=== PATIENT | male | born 1995 | race Caucasian/White ===

== ENCOUNTER 2017-06-07 16:47 | Inpatient (IN) | payer SELFPAY ==
[~2017-06-07] VITALS: Ht 182.9 cm; Wt 78.9 kg
[2017-06-07 00:23] VITALS: BP 104/60
[2017-06-07 17:34] VITALS: BP 122/61
[2017-06-07] MEDS ORDERED: NACL 0.9% 500 ML IV ONE (19:37)
[2017-06-07] MEDS ORDERED: ONDANSETRON 4 MG/2 ML VIAL IVP ONE (19:40)
[2017-06-07] MEDS ORDERED: KETOROLAC 30 MG/ML VIAL IVP ONE (19:40)
[2017-06-07] MEDS ORDERED: NACL 0.9% 1,000 ML IV ONE (19:40)
[2017-06-07 20:16] LABS: BASOPHILS # (AUTO) 0.2 K/uL (0.00-0.22); BASOPHILS % (AUTO) 1.4 % (0.0-2.0); EOSINOPHILS # (AUTO) 0.2 K/uL (0-0.4); EOSINOPHILS % (AUTO) 1.9 % (0.0-4.0); HEMATOCRIT 50.4 % (36-52); HEMOGLOBIN 16.6 g/dL (12.0-18.0); LYMPHOCYTES # (AUTO) 0.3 K/uL (2.0-11.5); LYMPHOCYTES % (AUTO) 2.7 % (20.5-51.1); MEAN CORPUSCULAR HEMOGLOBIN 29 pg (27-31); MEAN CORPUSCULAR HGB CONC 33 g/dL (33-37); MEAN CORPUSCULAR VOLUME 88 fL (80-94); MONOCYTES # (AUTO) 0.4 K/uL (0.8-1.0); MONOCYTES % (AUTO) 3.5 % (1.7-9.3); NEUTROPHILS # (AUTO) 9.7 K/uL (1.8-7.7); NEUTROPHILS % (AUTO) 90.5 % (42.2-75.2); PLATELET COUNT (AUTO) 138 K/uL (140-450); RED BLOOD CELL COUNT(AUTO) 5.73 MIL/uL (4.20-6.10); RED CELL DISTRIBUTION WIDTH 12.1 % (11.6-13.7); WHITE BLOOD COUNT (AUTO) 10.8 K/uL (4.5-11.0)
[2017-06-07 20:23] LABS: ANION GAP 15.2 (8-16); CARBON DIOXIDE 25.5 mmol/L (21-32); CREATININE 1.2 mg/dL (0.7-1.3); POTASSIUM 3.7 mmol/L (3.5-5.1)
[2017-06-07] MEDS ORDERED: ACETAMINOPHEN EXTRA STRENGTH 500 MG TAB ONE (20:23)
[2017-06-07 20:37] LABS: TOTAL BILIRUBIN 1.8 mg/dL (0.0-1.0)
[2017-06-07] MEDS ORDERED: PIPERACILLIN/TAZOBACTAM 3.375 GM in DEXTROSE 5% 50 ML IV ONE (20:45)
[2017-06-07 20:47] LABS: APPEARANCE,URINE HAZY (CLEAR); BILIRUBIN,URINE 1+ (NEGATIVE); BLOOD, URINE NEGATIVE (NEGATIVE); COLOR,URINE YELLOW (YELLOW); LEUKOCYTE ESTERASE ,URINE NEGATIVE (NEGATIVE); NITRITE, URINE NEGATIVE (NEGATIVE); UGLUCOSE NEGATIVE (NEGATIVE)
[2017-06-07 20:52] LABS: RBC,URINE 0-5 (RARE) /HPF (0-5); WBC,URINE 6-15 (FEW) /HPF (0-5)
[2017-06-07] MEDS ORDERED: VANCOMYCIN 1,000 MG VIAL PO ONE (21:00)
[2017-06-07] MEDS ORDERED: PIPERACILLIN/TAZOBACTAM 3.375 GM VIAL IV ONE (21:01)
[2017-06-07] MEDS ORDERED: VANCOMYCIN 1,000 MG in DEXTROSE 5% 250 ML IV ONE (21:40)
[2017-06-07] MEDS ORDERED: PANTOPRAZOLE 40 MG INJ VIAL IVP ONE (21:45)
[2017-06-07] MEDS: NACL 0.9% 1,000 ML IV SCH (22:02)
[2017-06-07] MEDS ORDERED: HYDROcodone/APAP 7.5/325 MG 1 TAB PO PRN (22:05)
[2017-06-07] MEDS ORDERED: DOCUSATE SODIUM 100 MG GELCAP PO PRN (22:05)
[2017-06-07] MEDS ORDERED: ONDANSETRON 4 MG/2 ML VIAL IM/IVP PRN (22:05)
[2017-06-07] MEDS ORDERED: MORPHINE SULFATE 2 MG/ML SYR IVP PRN (22:05)
[2017-06-07] MEDS ORDERED: VANCOMYCIN 1,000 MG VIAL ONE (22:05)
[2017-06-07 22:58] LABS: BARBITURATE, URINE NEG. ng/ml (NEG <=200); BENZODIAZEPINE, URINE NEG. ng/mL (NEG <=200); CANNABINOID, URINE POS. ng/mL (NEG <=50); COCAINE, URINE NEG. ng/mL (NEG <=300); OPIATE, URINE NEG. ng/mL (NEG <=2000); PHENCYCLIDINE SCREEN,URINE NEG. ng/mL (NEG <=25)
[2017-06-07 23:05] LABS: MAGNESIUM 1.1 mg/dL (1.8-2.4); PHOSPHORUS 2.1 mg/dL (2.5-4.9); THYROID STIMULATING HORMONE 0.2 uIU/mL (0.34-3.74)
[2017-06-07] MEDS ORDERED: MAG SULF 2000 MG/WATER PREMIX 50 ML IV SCH (23:40)
[2017-06-07] MEDS ORDERED: SODIUM PHOS / POTASSIUM PHOS 1 PKT PDR PO SCH (23:40)
[2017-06-07] MEDS ORDERED: MAG SULF 2000 MG/WATER PREMIX 100 ML IV SCH (23:40)
[2017-06-08 00:55] VITALS: BP 100/38
[2017-06-08] MEDS ORDERED: LEVOFLOXACIN 250 MG/D5 PREMIX 50 ML IV SCH ×2 (01:00→21:00)
[2017-06-08 04:25] VITALS: BP 118/58
[2017-06-08] MEDS ORDERED: PIPERACILLIN/TAZOBACTAM 2.25 GM VIAL IV ONE (05:14)
[2017-06-08] MEDS ORDERED: PIPER/TAZO 2.25GM/D5W PREMIX 50 ML IV SCH (06:00)
[2017-06-08] MEDS ORDERED: CLINDAMYCIN 300 MG in DEXTROSE 5% 50 ML IV SCH (06:00)
[2017-06-08] MEDS: ACETAMINOPHEN 325 MG TAB PO PRN ×2 (06:40→21:14)
[2017-06-08 08:00] VITALS: BP 113/68
[2017-06-08 11:25] LABS: BASOPHILS # (AUTO) 0.1 K/uL (0.00-0.22); BASOPHILS % (AUTO) 0.8 % (0.0-2.0); EOSINOPHILS # (AUTO) 0.1 K/uL (0-0.4); HEMATOCRIT 41.3 % (36-52); HEMOGLOBIN 14.1 g/dL (12.0-18.0); LYMPHOCYTES # (AUTO) 0.5 K/uL (2.0-11.5); LYMPHOCYTES % (AUTO) 6.5 % (20.5-51.1); MEAN CORPUSCULAR HEMOGLOBIN 30 pg (27-31); MEAN CORPUSCULAR HGB CONC 34 g/dL (33-37); MEAN CORPUSCULAR VOLUME 88 fL (80-94); MONOCYTES # (AUTO) 0.7 K/uL (0.8-1.0); MONOCYTES % (AUTO) 8.4 % (1.7-9.3); NEUTROPHILS # (AUTO) 7.1 K/uL (1.8-7.7); NEUTROPHILS % (AUTO) 83.3 % (42.2-75.2); PLATELET COUNT (AUTO) 126 K/uL (140-450); RED BLOOD CELL COUNT(AUTO) 4.69 MIL/uL (4.20-6.10); WHITE BLOOD COUNT (AUTO) 8.5 K/uL (4.5-11.0)
[2017-06-08 11:52] LABS: MAGNESIUM 2.4 mg/dL (1.8-2.4); PHOSPHORUS 3.2 mg/dL (2.5-4.9)
[2017-06-08 12:45] LABS: ANION GAP 13.4 (8-16); CARBON DIOXIDE 25.8 mmol/L (21-32); POTASSIUM 4.2 mmol/L (3.5-5.1)
[2017-06-08 16:00] VITALS: BP 124/64
[2017-06-08] MEDS: NACL 0.9% 1,000 ML IV SCH ×2 (21:00→23:12)
[2017-06-09 00:35] VITALS: BP 119/66
[2017-06-09 06:22] LABS: BASOPHILS # (AUTO) 0.1 K/uL (0.00-0.22); BASOPHILS % (AUTO) 1.5 % (0.0-2.0); EOSINOPHILS # (AUTO) 0.2 K/uL (0-0.4); EOSINOPHILS % (AUTO) 2.9 % (0.0-4.0); HEMATOCRIT 39.7 % (36-52); HEMOGLOBIN 13.8 g/dL (12.0-18.0); LYMPHOCYTES % (AUTO) 14.7 % (20.5-51.1); MEAN CORPUSCULAR HEMOGLOBIN 31 pg (27-31); MEAN CORPUSCULAR HGB CONC 35 g/dL (33-37); MEAN CORPUSCULAR VOLUME 88 fL (80-94); MONOCYTES # (AUTO) 0.8 K/uL (0.8-1.0); MONOCYTES % (AUTO) 11.9 % (1.7-9.3); NEUTROPHILS # (AUTO) 4.6 K/uL (1.8-7.7); PLATELET COUNT (AUTO) 111 K/uL (140-450); RED BLOOD CELL COUNT(AUTO) 4.52 MIL/uL (4.20-6.10); RED CELL DISTRIBUTION WIDTH 12.2 % (11.6-13.7)
[2017-06-09 06:49] LABS: ANION GAP 10.6 (8-16); CARBON DIOXIDE 27.5 mmol/L (21-32); MAGNESIUM 1.7 mg/dL (1.8-2.4); PHOSPHORUS 3.2 mg/dL (2.5-4.9); POTASSIUM 4.1 mmol/L (3.5-5.1)
[2017-06-09] MEDS: NACL 0.9% 1,000 ML IV SCH (07:22)
[2017-06-09 07:40] LABS: WHITE BLOOD COUNT (AUTO) 6.7 K/uL (4.5-11.0)
[2017-06-09 08:00] VITALS: BP 125/59
[2017-06-09] MEDS ORDERED: LACTOBACILLUS RHAMNOSUS GG 1 EACH CAP PO SCH (09:00)
[2017-06-09] MEDS ORDERED: CEPH250C16 PO (11:26)
[2017-06-09] MEDS ORDERED: ACET-1182 PO (11:26)
[2017-06-09] MEDS ORDERED: LACT1.4C PO (11:26)
[2017-06-09] MEDS ORDERED: HYD2.5O TP (11:26)
[2017-06-09 12:00] VITALS: BP 138/62
[2017-06-09 16:00] VITALS: BP 118/59
[2017-06-09] MEDS ORDERED: MAGNESIUM OXIDE 400 MG TAB PO SCH (16:20)
[2017-06-11 08:49] LABS: T4 (THYROXINE) 6.8 ug/dL (4.5 - 12.0)
== END 2017-06-09 18:50 | disposition home or self-care (01) | DRG 602 ==
LOC: MED 16:47 → MTU 22:07
PROVIDERS: ADMIT Family Medicine; ATTEND Family Medicine
DX: L03.115 Cellulitis of right lower limb (principal); N17.0 Acute kidney failure with tubular necrosis; D69.6 Thrombocytopenia, unspecified; E83.42 Hypomagnesemia; G93.89 Other specified disorders of brain; N39.0 Urinary tract infection, site not specified; F12.10 Cannabis abuse, uncomplicated; R80.9 Proteinuria, unspecified; I88.9 Nonspecific lymphadenitis, unspecified; E05.90 Thyrotoxicosis, unspecified without thyrotoxic crisis or storm; R11.10 Vomiting, unspecified; Z90.49 Acquired absence of other specified parts of digestive tract; Z71.51 Drug abuse counseling and surveillance of drug abuser
CPT/HCPCS: 36415; 71010; 72192; 73700; 80048; 80053; 80305; 81001; 83036; 83605; 83690; 83735; 83880; 84100; 84436; 84443; 84479; 85025; 87040; 87081; 87086; 93005; 93926; 93971; 96361; 96365; 96367; 96375; 99285; C9113; J0690; J1885; J1956; J2405; J2543; J3370; J3475; J7030; J7060; Q0092

== ENCOUNTER 2017-09-28 13:37 | Emergency (ER) | payer OTHER ==
[~2017-09-28] VITALS: Ht 182.9 cm; Wt 83.5 kg
[~2017-09-28 13:37] MED LIST: ACET-1182 PO; CEPH250C16 PO; HYD2.5O TP; LACT1.4C PO
[2017-09-28 13:46] VITALS: BP 135/67
[2017-09-28] MEDS ORDERED: NACL 0.9% 1,000 ML IV ONE (13:55)
[2017-09-28] MEDS ORDERED: ONDANSETRON 4 MG/2 ML VIAL IVP ONE (13:55)
--- NOTE | 2017-09-28 14:02 | NUR ---
c/o llq pain with severe nausea x 2 days----sharp/cramping type pain loose stools---admits to abusing etoh daily bright red blood in urine bright red blood in stool bright red blood in emesis SKIN IS PINK/WARM/DRY; AAOX4 WITH EVEN AND STEADY GAIT; LUNGS CLEAR BL; HR EVEN AND REGULAR; PT DENIES ANY FEVER, CP, SOB, OR COUGH AT THIS TIME; PATIENT STATES PAIN OF 10/10 AT THIS TIME; VSS; PATIENT POSITIONED FOR COMFORT; HOB ELEVATED; BEDRAILS UP X2; BED DOWN. ER MD MADE AWARE OF PT STATUS.
[2017-09-28 14:26] LABS: ALBUMIN 5.1 g/dL (3.4-5.0); ANION GAP 14.7 (8-16); CARBON DIOXIDE 27.1 mmol/L (21-32); CREATININE 1.2 mg/dL (0.7-1.3); POTASSIUM 3.8 mmol/L (3.5-5.1)
[2017-09-28 14:37] LABS: HEMATOCRIT 50.2 % (36-52); MEAN CORPUSCULAR HEMOGLOBIN 29 pg (27-31); MEAN CORPUSCULAR HGB CONC 34 g/dL (33-37); MEAN CORPUSCULAR VOLUME 87 fL (80-94); PLATELET COUNT (AUTO) 140 K/uL (140-450); RED BLOOD CELL COUNT(AUTO) 5.78 MIL/uL (4.20-6.10); RED CELL DISTRIBUTION WIDTH 12.4 % (11.6-13.7); WHITE BLOOD COUNT (AUTO) 10.1 K/uL (4.8-10.8)
[2017-09-28 14:46] LABS: APPEARANCE,URINE CLEAR (CLEAR); BILIRUBIN,URINE 1+ (NEGATIVE); BLOOD, URINE NEGATIVE (NEGATIVE); COLOR,URINE YELLOW (YELLOW); LEUKOCYTE ESTERASE ,URINE NEGATIVE (NEGATIVE); NITRITE, URINE NEGATIVE (NEGATIVE); PH,URINE 7.5 (5.0-9.0); UGLUCOSE NEGATIVE (NEGATIVE)
[2017-09-28 14:51] LABS: RBC,URINE 0-5 (RARE) /HPF (0-5); WBC,URINE 6-15 (FEW) /HPF (0-5)
--- NOTE | 2017-09-28 14:58 | NUR ---
PT LEFT FOR CT VIA WHEELCHAIR ACOOMPANIED BY TECH.
[2017-09-28 15:03] LABS: LYMPHOCYTES % (MANUAL) 1 % (20-46); MONOCYTES % (MANUAL) 8 % (5-12)
[2017-09-28 15:55] LABS: BARBITURATE, URINE NEG. ng/ml (NEG <=200); BENZODIAZEPINE, URINE NEG. ng/mL (NEG <=200); CANNABINOID, URINE POS. ng/mL (NEG <=50); COCAINE, URINE NEG. ng/mL (NEG <=300); OPIATE, URINE NEG. ng/mL (NEG <=2000); PHENCYCLIDINE SCREEN,URINE NEG. ng/mL (NEG <=25)
[2017-09-28 16:07] VITALS: BP 130/65
== END 2017-09-28 16:08 | disposition home or self-care (01) ==
LOC: MED 13:37
DX: R11.2 Nausea with vomiting, unspecified (principal); R19.7 Diarrhea, unspecified; F12.90 Cannabis use, unspecified, uncomplicated; F10.99 Alcohol use, unspecified with unspecified alcohol-induced disorder; R94.5 Abnormal results of liver function studies; Z72.89 Other problems related to lifestyle; Z79.899 Other long term (current) drug therapy
CPT/HCPCS: 36415; 74176; 80053; 80305; 81001; 85025; 87086; 96361; 96374; 99285; J2405; J7030

== ENCOUNTER 2017-11-27 06:25 | Emergency (ER) | payer OTHER ==
[~2017-11-27] VITALS: Ht 182.9 cm; Wt 83.5 kg
[2017-11-27 06:30] VITALS: BP 147/67
--- NOTE | 2017-11-27 06:33 | NUR ---
PATIENT AMBULATED TO ER BED 2.
--- NOTE | 2017-11-27 06:35 | NUR ---
Pt presetns to ED with c/o n/v/d x6 days. Pt states chest pressue/tightness/burning at rest and with breathing. A&Ox4. VSS. ER MD aware. Pt positioned for comfort. Continue to monitor.
--- NOTE | 2017-11-27 07:00 | NUR ---
EKG done. NSR. VSS. Continue to monitor.
--- NOTE | 2017-11-27 07:10 | NUR ---
RECEIVED REPORT FROM JOHN HARRINGTON.Patient appears to be resting comfortably in bed. Vital Signs within normal limits. Respirations even and unlabored. WILL CONTINUE TO MONITOR.
[2017-11-27] MEDS ORDERED: KETOROLAC 60 MG/2 ML VIAL IM ONE (07:15)
[2017-11-27] MEDS ORDERED: ONDANSETRON 4 MG ODT PO ONE (07:25)
[2017-11-27 08:16] VITALS: BP 126/69
--- NOTE | 2017-11-27 08:16 | NUR ---
Patient discharged with v/s stable. Written and verbal after care instructions given and explained. Patient alert, oriented and verbalized understanding of instructions. Ambulatory with steady gait. All questions addressed prior to discharge. ID band removed. Patient advised to follow up with PMD. Rx of MOTRIN, ZOFRAN, CIPRO, SUDAFED & PREDNISONE given. Patient educated on indication of medication including possible reaction and side effects. Opportunity to ask questions provided and answered.
== END 2017-11-27 08:16 | disposition home or self-care (01) ==
LOC: MED 06:25
DX: J11.1 Influenza due to unidentified influenza virus with other respiratory manifestations (principal); R11.2 Nausea with vomiting, unspecified; R19.7 Diarrhea, unspecified; Z90.89 Acquired absence of other organs; Z79.899 Other long term (current) drug therapy
CPT/HCPCS: 96372; 99283; J1885; S0119

== ENCOUNTER 2018-01-15 14:39 | Emergency (ER) | payer OTHER ==
[~2018-01-15] VITALS: Ht 185.4 cm; Wt 85.4 kg
[2018-01-15 14:43] VITALS: BP 141/57
--- NOTE | 2018-01-15 14:48 | NUR ---
PT AMBULATES TO CHAIR E
--- NOTE | 2018-01-15 15:20 | NUR ---
22/M BIB GIRLFRIEND C/O COUGH, SORE THROAT / , RHINORRHEA, FEVER, SWEATS, LACK OF SLEEP X 1 MONTH. DENIES N/V/D; SKIN IS PINK/WARM/DRY; AAOX4 WITH EVEN AND STEADY GAIT; LUNGS CLEAR BL. PATIENT STATES PAIN OF 8/10 AT THIS TIME.
--- NOTE | 2018-01-15 16:45 | NUR ---
Patient being evaluated by DR ZEE at bedside.
[2018-01-15 16:54] VITALS: BP 123/61
--- NOTE | 2018-01-15 16:54 | NUR ---
Patient discharged with v/s stable BY DR TURNER. Written and verbal after care instructions given and explained. Patient alert, oriented and verbalized understanding of instructions. Ambulatory with steady gait. All questions addressed prior to discharge. ID band removed. Patient advised to follow up with PMD. Rx of ALBUTEROL,AUGMENTIN& PROMETHAZINE given. Patient educated on indication of medication including possible reaction and side effects. Opportunity to ask questions provided and answered.
== END 2018-01-15 16:54 | disposition home or self-care (01) ==
LOC: MED 14:39
DX: J20.9 Acute bronchitis, unspecified (principal); Z90.49 Acquired absence of other specified parts of digestive tract
CPT/HCPCS: 99283

== ENCOUNTER 2018-01-28 17:34 | Emergency (ER) | payer OTHER ==
[~2018-01-28] VITALS: Ht 185.4 cm; Wt 83.5 kg
[2018-01-28 17:36] VITALS: BP 114/55
--- NOTE | 2018-01-28 17:47 | NUR ---
22/M BIB WITH C/O COUGH , RUNNY NOSE & SORE THROAT & CHEST PAIN WHEN COUGHING X 3 DAY. PT STATED VOMIT X 2 EPISODES TODAY. HX : APPENDECTOMY IN 2016.SKIN IS PINK/WARM/DRY; AAOX4 WITH EVEN AND STEADY GAIT; LUNGS CLEAR BL. PATIENT STATES PAIN OF 10/10 AT THIS TIME
--- NOTE | 2018-01-28 17:58 | NUR ---
Patient being evaluated by DR THOMPSON at bedside.
[2018-01-28 18:09] VITALS: BP 118/78
--- NOTE | 2018-01-28 18:10 | NUR ---
Patient discharged with v/s stable. Written and verbal after care instructions given and explained. Patient alert, oriented and verbalized understanding of instructions. Ambulatory with steady gait. All questions addressed prior to discharge. ID band removed. Patient advised to follow up with PMD. Rx of NAPROSYN, PREDNISONE given. Patient educated on indication of medication including possible reaction and side effects. Opportunity to ask questions provided and answered.
== END 2018-01-28 18:10 | disposition home or self-care (01) ==
LOC: MED 17:34
DX: J02.9 Acute pharyngitis, unspecified (principal)
CPT/HCPCS: 71045; 99283

== ENCOUNTER 2018-06-18 07:21 | Emergency (ER) | payer OTHER ==
[~2018-06-18] VITALS: Ht 185.4 cm; Wt 83.5 kg
[2018-06-18 07:28] VITALS: BP 109/64
--- NOTE | 2018-06-18 07:36 | NUR ---
AMBULATES WITH STEADY GAIT TO BED 3. C/O "BURNING" EPIGASTRIC PAIN SUDDEN ONSET SINCE 3AM THIS MORNIGN ASSOCIATED WITH N/V BLOOD TINGED EMESIS. PT IS DIAPHORETIC, ADMITS TO DRINKING ALCOHOL FREQUENTLY. NAD NOTED/STATED OTHERWISE. PLACED ON ALL MONITORS, VS WNL. PENDING MD NAIR.
[2018-06-18] MEDS ORDERED: ONDANSETRON 4 MG/2 ML VIAL IVP ONE (08:00)
[2018-06-18] MEDS ORDERED: KETOROLAC 30 MG/ML VIAL IVP ONE (08:00)
[2018-06-18] MEDS ORDERED: NACL 0.9% 1,000 ML IV ONE (08:00)
[2018-06-18] MEDS ORDERED: PANTOPRAZOLE 40 MG INJ VIAL IVP ONE (08:00)
[2018-06-18 08:43] LABS: BASOPHILS % (AUTO) 0.3 % (0.0-2.0); EOSINOPHILS # (AUTO) 0.2 K/uL (0-0.4); EOSINOPHILS % (AUTO) 2.1 % (0.0-4.0); HEMATOCRIT 50.3 % (36-52); HEMOGLOBIN 17.2 g/dL (12.0-18.0); LYMPHOCYTES # (AUTO) 1.4 K/uL (2.0-11.5); LYMPHOCYTES % (AUTO) 16.7 % (20.5-51.1); MEAN CORPUSCULAR HEMOGLOBIN 30 pg (27-31); MEAN CORPUSCULAR HGB CONC 34 g/dL (33-37); MEAN CORPUSCULAR VOLUME 86.5 fL (80-94); MONOCYTES # (AUTO) 0.5 K/uL (0.8-1.0); MONOCYTES % (AUTO) 6.3 % (1.7-9.3); NEUTROPHILS # (AUTO) 6.2 K/uL (1.8-7.7); NEUTROPHILS % (AUTO) 74.6 % (42.2-75.2); PLATELET COUNT (AUTO) 147 K/uL (140-450); RED BLOOD CELL COUNT(AUTO) 5.81 MIL/uL (4.20-6.10); RED CELL DISTRIBUTION WIDTH 13.3 % (11.6-13.7); WHITE BLOOD COUNT (AUTO) 8.3 K/uL (4.8-10.8)
[2018-06-18 09:00] LABS: ANION GAP 14.3 (8-16); CREATININE 0.9 mg/dL (0.7-1.3); POTASSIUM 3.3 mmol/L (3.5-5.1)
[2018-06-18 09:05] LABS: ALBUMIN 4.9 g/dL (3.4-5.0)
[2018-06-18 10:48] VITALS: BP 111/50
--- NOTE | 2018-06-18 10:55 | NUR ---
Patient discharged with v/s stable. Written and verbal after care instructions given and explained. Patient alert, oriented and verbalized understanding of instructions. Ambulatory with steady gait. All questions addressed prior to discharge. ID band removed. Patient advised to follow up with PMD. Rx of PRILOSEC, ZOFRAN, MAALOX given. Patient educated on indication of medication including possible reaction and side effects. Opportunity to ask questions provided and answered.
== END 2018-06-18 10:55 | disposition home or self-care (01) ==
LOC: MED 07:21
DX: K29.00 Acute gastritis without bleeding (principal); Z79.899 Other long term (current) drug therapy
CPT/HCPCS: 36415; 80053; 83690; 85025; 96361; 96374; 96375; 99284; C9113; J1885; J2405; J7030

== ENCOUNTER 2019-02-03 09:14 | Emergency (ER) | payer OTHER ==
[~2019-02-03] VITALS: Ht 188 cm; Wt 92.5 kg
[2019-02-03 09:17] VITALS: BP 114/63
--- NOTE | 2019-02-03 09:24 | NUR ---
BIB GIRLFRIEND. PT AAO X4 C/O PRODUCTIVE COUGH WITH YELLOW PHLEGM, SORE THROAT WITH SHARP PAIN 10/10X 4 DAYS. N/V/D X 3DAYS. PER PT LAST BM TODAY WITH LOOSE STOOLS, NO BLOOD. PT TAKES DAYQUIL FOR OTC MEDS WITH NO RELIEF. AFEBRILE. PT STATES DIFFICULTY BREATHING WHEN LAYING DOWN. O2 SATURATION 98% RA. ARTURO LUNGS CLEAR UPON AUSCULTATION. HOB UP. BED SIDE RAILS UP X1. ON LOW BED POSITION, LOCKED. ER MADE AWARE OF PT STATUS.
--- NOTE | 2019-02-03 09:24 | NUR ---
Patient ambulated to bed 3 with family. RN evaluating patient at bedside.
--- NOTE | 2019-02-03 09:41 | NUR ---
DR GARCIA AT BEDSIDE FOR PT EVALUATION
[2019-02-03] MEDS ORDERED: KETOROLAC 60 MG/2 ML VIAL IM ONE (09:45)
--- NOTE | 2019-02-03 10:30 | NUR ---
PT AAO X4. ABLE TO CONVERSATE APPROPRIATELY. FULL CLEAR SPEECH. NO SIGNS AND SYMPTOMS OF DISTRESS NOTED.
[2019-02-03 11:23] VITALS: BP 124/76
--- NOTE | 2019-02-03 11:23 | NUR ---
Patient discharged with v/s stable. Written and verbal after care instructions given and explained. Patient alert, oriented and verbalized understanding of instructions. Ambulatory with steady gait. All questions addressed prior to discharge. ID band removed. Patient advised to follow up with PMD. Rx of Zofran, Motrin, Prednisone given. Patient educated on indication of medication including possible reaction and side effects. Opportunity to ask questions provided and answered.
== END 2019-02-03 11:23 | disposition home or self-care (01) ==
LOC: MED 09:14
DX: J02.9 Acute pharyngitis, unspecified (principal); R11.2 Nausea with vomiting, unspecified; R19.7 Diarrhea, unspecified; Z90.49 Acquired absence of other specified parts of digestive tract; Z79.899 Other long term (current) drug therapy
CPT/HCPCS: 81002; 96372; 99283; J1885

== ENCOUNTER 2019-11-24 10:37 | Emergency (ER) | payer MEDICAID, OTHER ==
[~2019-11-24] VITALS: Ht 188 cm; Wt 83.5 kg
[2019-11-24 10:40] VITALS: BP 149/88
--- NOTE | 2019-11-24 10:45 | NUR ---
PT TO ER BED 12
[2019-11-24] MEDS ORDERED: ONDANSETRON 4 MG/2 ML VIAL IVP ONE (10:55)
[2019-11-24] MEDS ORDERED: NACL 0.9% 1,000 ML IV ONE (10:55)
--- NOTE | 2019-11-24 11:05 | NUR ---
RECEVIED A 24/M FROM TRIAGE FOR DIARRHEA AND GENERALIZED ABDOMINAL PAIN. ABD IS SOFT NON TENDER. NO DISTRESS NOTED. DENIES PAIN UPON PALPATION. NO DISTRESS NOTED. IN BED FOR MSE.
[2019-11-24 11:10] LABS: APPEARANCE,URINE CLEAR (CLEAR); BILIRUBIN,URINE 1+ (NEGATIVE); BLOOD, URINE NEGATIVE (NEGATIVE); COLOR,URINE BROWN (YELLOW); LEUKOCYTE ESTERASE ,URINE TRACE (NEGATIVE); NITRITE, URINE NEGATIVE (NEGATIVE); PH,URINE 5.5 (5.0-9.0); UGLUCOSE NEGATIVE (NEGATIVE)
[2019-11-24 11:14] LABS: BASOPHILS # (AUTO) 0.1 K/uL (0.00-0.22); BASOPHILS % (AUTO) 1.1 % (0.0-2.0); EOSINOPHILS # (AUTO) 0.1 K/uL (0-0.4); EOSINOPHILS % (AUTO) 1.2 % (0.0-4.0); HEMATOCRIT 48.2 % (36-52); HEMOGLOBIN 16.9 g/dL (12.0-18.0); LYMPHOCYTES % (AUTO) 10.7 % (20.5-51.1); MEAN CORPUSCULAR HEMOGLOBIN 31 pg (27-31); MEAN CORPUSCULAR HGB CONC 35 g/dL (33-37); MEAN CORPUSCULAR VOLUME 86.8 fL (80-94); MONOCYTES # (AUTO) 0.7 K/uL (0.8-1.0); MONOCYTES % (AUTO) 8.3 % (1.7-9.3); NEUTROPHILS % (AUTO) 78.7 % (42.2-75.2); PLATELET COUNT (AUTO) 162 K/uL (140-450); RED BLOOD CELL COUNT(AUTO) 5.55 MIL/uL (4.20-6.10); RED CELL DISTRIBUTION WIDTH 13.1 % (11.6-13.7); WHITE BLOOD COUNT (AUTO) 8.9 K/uL (4.8-10.8)
--- NOTE | 2019-11-24 11:15 | NUR ---
PT REPORTS RELIEF OF NAUSEA POST IV ZOFRAN ADMIN. WILL CONTINUE TO ASSESS.
[2019-11-24 11:30] LABS: ALBUMIN 4.6 g/dL (3.4-5.0); ANION GAP 14.9 (8-16); CARBON DIOXIDE 27.8 mmol/L (21-32); POTASSIUM 3.7 mmol/L (3.5-5.1); TOTAL BILIRUBIN 1.9 mg/dL (0.0-1.0)
[2019-11-24 11:35] LABS: RBC,URINE 0-5 /HPF (0-5); WBC,URINE 0-5 /HPF (0-5)
--- NOTE | 2019-11-24 12:00 | NUR ---
PT REMAINS FREE OF NAUSEA. NO NEW QUESTIONS OR CONCERNS. UPDATED ON PLAN OF CARE.
--- NOTE | 2019-11-24 12:50 | NUR ---
IV removed, catheter intact and site benign. Applied folded 4x4 gauze and tape to stop bleeding.
[2019-11-24 12:51] VITALS: BP 138/74
--- NOTE | 2019-11-24 12:51 | NUR ---
Patient discharged with v/s stable. Written and verbal after care instructions given and explained. Patient alert, oriented and verbalized understanding of instructions. Ambulatory with steady gait. All questions addressed prior to discharge. ID band removed. Patient advised to follow up with PMD. Rx of NORCO, MOTRIN given. Patient educated on indication of medication including possible reaction and side effects. Opportunity to ask questions provided and answered.
== END 2019-11-24 12:51 | disposition home or self-care (01) ==
LOC: MED 10:37
DX: R10.32 Left lower quadrant pain (principal); R63.0 Anorexia; Z79.899 Other long term (current) drug therapy; Z90.49 Acquired absence of other specified parts of digestive tract
CPT/HCPCS: 36415; 74177; 80053; 81001; 83690; 85025; 96374; 99285; J2405; J7030; Q9967

== ENCOUNTER 2021-03-19 11:52 | Emergency (ER) | payer MEDICAID, OTHER ==
[~2021-03-19] VITALS: Ht 188 cm; Wt 96.2 kg
[2021-03-19 11:55] VITALS: BP 135/92
[2021-03-19] MEDS ORDERED: DICYCLOMINE 10 MG CAP PO ONE (12:10)
[2021-03-19] MEDS ORDERED: NACL 0.9% 1,000 ML IV ONE (12:20)
[2021-03-19 12:42] LABS: BASOPHILS % (AUTO) 0.6 % (0.0-2.0); EOSINOPHILS # (AUTO) 0.2 K/uL (0-0.4); EOSINOPHILS % (AUTO) 1.9 % (0.0-4.0); HEMOGLOBIN 15.8 g/dL (12.0-18.0); LYMPHOCYTES # (AUTO) 1.1 K/uL (2.0-11.5); LYMPHOCYTES % (AUTO) 13.3 % (20.5-51.1); MEAN CORPUSCULAR HEMOGLOBIN 31 pg (27-31); MEAN CORPUSCULAR HGB CONC 35 g/dL (33-37); MEAN CORPUSCULAR VOLUME 88.1 fL (80-94); MONOCYTES # (AUTO) 0.7 K/uL (0.8-1.0); MONOCYTES % (AUTO) 8.1 % (1.7-9.3); NEUTROPHILS # (AUTO) 6.2 K/uL (1.8-7.7); NEUTROPHILS % (AUTO) 76.1 % (42.2-75.2); PLATELET COUNT (AUTO) 177 K/uL (140-450); RED BLOOD CELL COUNT(AUTO) 5.11 MIL/uL (4.20-6.10); RED CELL DISTRIBUTION WIDTH 13.3 % (11.6-13.7); WHITE BLOOD COUNT (AUTO) 8.1 K/uL (4.8-10.8)
[2021-03-19 13:11] LABS: APPEARANCE,URINE CLEAR (CLEAR); BILIRUBIN,URINE 1+ (NEGATIVE); BLOOD, URINE TRACE-I (NEGATIVE); COLOR,URINE YELLOW (YELLOW); LEUKOCYTE ESTERASE ,URINE NEGATIVE (NEGATIVE); NITRITE, URINE NEGATIVE (NEGATIVE); PH,URINE 5.5 (5.0-9.0); UGLUCOSE NEGATIVE (NEGATIVE)
[2021-03-19 13:12] LABS: ALBUMIN 4.8 g/dL (3.4-5.0); ANION GAP 15.4 (8-16); ASPARTATE AMINOTRANSFERASE 52 U/L (15-37); CARBON DIOXIDE 25.3 mmol/L (21-32); CHLORIDE 104 mmol/L (98-107); GFR ARICAN-AMERICAN 118 mL/min (>90); GLUCOSE 93 mg/dL (74-106); LIPASE 101 U/L (73-393); POTASSIUM 3.7 mmol/L (3.5-5.1); SODIUM SERUM 141 mmol/L (136-145); TOTAL BILIRUBIN 0.8 mg/dL (0.0-1.0); UREA NITROGEN, BLOOD 7 mg/dL (7-18)
[2021-03-19] MEDS ORDERED: FAMO-92 PO (13:20)
[2021-03-19] MEDS ORDERED: IBUP-1842 PO (13:20)
[2021-03-19 13:28] LABS: RBC,URINE 0-5 /HPF (0-5); WBC,URINE 0-5 /HPF (0-5)
[2021-03-19 13:31] VITALS: BP 135/92
== END 2021-03-19 13:31 | disposition home or self-care (01) ==
LOC: MED 11:52
DX: S93.602A Unspecified sprain of left foot, initial encounter (principal); K29.20 Alcoholic gastritis without bleeding; W21.05XA Struck by basketball, initial encounter; Y93.89 Activity, other specified; Y92.89 Other specified places as the place of occurrence of the external cause; Y99.8 Other external cause status
CPT/HCPCS: 36415; 73630; 80053; 81001; 83690; 85025; 96360; 99284; G0482; J7030

== ENCOUNTER 2022-03-07 05:53 | Emergency (ER) | payer OTHER ==
[~2022-03-07] VITALS: Ht 185.4 cm; Wt 94.3 kg
[~2022-03-07 05:53] MED LIST changes: +FAMO-92 PO; +IBUP-1842 PO
[2022-03-07 06:19] VITALS: BP 160/77
[2022-03-07] MEDS ORDERED: IBUP-2213 PO (06:46)
[2022-03-07] MEDS ORDERED: PRED20TA5 PO (06:46)
[2022-03-07] MEDS ORDERED: PSEU120T22 PO (06:46)
[2022-03-07 07:10] VITALS: BP 160/77
--- NOTE | 2022-03-07 07:11 | NUR ---
Patient discharged with v/s stable. Written and verbal after care instructions given and explained. Patient alert, oriented and verbalized understanding of instructions. Ambulatory with steady gait. All questions addressed prior to discharge. ID band removed. Patient advised to follow up with PMD. Rx of IBUPROFEN, PREDNISONE, AND SUDAFED given. Patient educated on indication of medication including possible reaction and side effects. Opportunity to ask questions provided and answered.
== END 2022-03-07 07:11 | disposition home or self-care (01) ==
LOC: MED 05:53
DX: J02.9 Acute pharyngitis, unspecified (principal); J06.9 Acute upper respiratory infection, unspecified; F12.90 Cannabis use, unspecified, uncomplicated; Z90.49 Acquired absence of other specified parts of digestive tract; Z79.899 Other long term (current) drug therapy
CPT/HCPCS: 99283